=== PATIENT | female | born 1975 | race Caucasian/White ===

== ENCOUNTER 2016-10-12 11:04 | Observation (INO) | payer MEDICARE, OTHER ==
[~2016-10-12] VITALS: Ht 167.6 cm; Wt 97.5 kg
[~2016-10-12 11:04] MED LIST: DOCU-144 PO; FER325 PO; GLIM4TAB PO; LANT3I SC; LEVO137T24 PO; METF500T4 PO
[2016-10-12 11:16] VITALS: Ht 167.6 cm; Wt 97.5 kg
[2016-10-12] MEDS ORDERED: SOD CHLORIDE 0.9% 1,000 ML IV STA (11:24)
[2016-10-12 12:02] LABS: ADD SCAN DIFF NO
[2016-10-12 12:07] LABS: ABNORMAL IP MESSAGE 1; HEMATOCRIT 24.8 % (37.0-47.0); MEAN CORPUSCULAR HEMOGLOBIN 16.9 pg (29.0-33.0); MEAN CORPUSCULAR HGB CONC 26.2 g/dl (32.0-37.0); MEAN CORPUSCULAR VOLUME 64.6 fl (82.0-101.0); MEAN PLATELET VOLUME 8.9 fl (7.4-10.4); PLATELET COUNT 300 10^3/UL (140-415); RED BLOOD COUNT 3.84 10^6/ul (4.20-5.40); RED CELL DISTRIBUTION WIDTH 20.7 % (11.5-14.5)
[2016-10-12 12:20] LABS: HEMOGLOBIN 6.5 g/dl (12.0-16.0)
[2016-10-12] MEDS ORDERED: SOD CHLORIDE 0.9% 250 ML IV ONE (12:20)
[2016-10-12 12:32] LABS: ADD UMIC NO; UR ASCORBIC ACID 40 mg/dL (NEGATIVE); UR BILIRUBIN (Dip) NEGATIVE (NEGATIVE); UR BLOOD (Dip) NEGATIVE (NEGATIVE); UR CLARITY SLIGHTLY CLOUDY (CLEAR); UR COLOR YELLOW (YELLOW); UR GLUCOSE (Dip) 1+ mg/dL (NEGATIVE); UR KETONES (Dip) TRACE mg/dL (NEGATIVE); UR LEUKOCYTE ESTERASE (Dip) NEGATIVE Leu/ul (NEGATIVE); UR MUCUS FEW /HPF (NONE SEEN); UR NITRITE (Dip) NEGATIVE (NEGATIVE); UR RBC 0 /HPF (0-5); UR SPECIFIC GRAVITY (Dip) 1.023 (1.003-1.030); UR SQUAMOUS EPITHELIAL CELL MODERATE /HPF (FEW); UR TOTAL PROTEIN (Dip) NEGATIVE (NEGATIVE); UR UROBILINOGEN (Dip) NEGATIVE (NEGATIVE)
[2016-10-12 12:32] LABS: CREATININE 0.72 mg/dl (0.44-1.00); POTASSIUM 3.7 mmol/L (3.5-5.1)
[2016-10-12 12:51] LABS: EOSINOPHILS # 0.2 10^3/ul (0.0-0.5); LYMPHOCYTES # 2.3 10^3/ul (0.8-2.9); MONOCYTE # 0.2 10^3/ul (0.3-0.9); NEUTROPHIL # 2.7 10^3/ul (1.6-7.5)
[2016-10-12 12:54] LABS: PLATELET ESTIMATE PLT APPEAR ADEQUATE
--- NOTE | 2016-10-12 12:59 | RADRPT ---
PROCEDURE: US Pelvis CLINICAL INDICATION: Vaginal bleeding TECHNIQUE: Multiple sonographic images of the pelvis were obtained utilizing a transabdominal and endovaginal technique. The images were reviewed on a PACS workstation. COMPARISON: Pelvic ultrasound from 02/02/2016 LMP: 09/02/2016 FINDINGS: The uterus measures 10.6 x 6.2 x 5.9 cm. The endometrial echo complex measures 11 mm in thickness. The uterus is heterogeneous and the junctional zone between the endometrium and myometrium is indis tinct. A 1.3 cm Nabothian cyst is identified. The right ovary measures 2.4 x 1.4 x 1.8 cm. The left ovary measures 3.1 x 2.2 x 2.2 cm. There is no rmal vascular flow in both ovaries. There is a 1.7 cm complex cystic lesion with low level internal echoes and partially circumscribed b orders in the left ovary which may be a hemorrhagic/corpus luteal cyst. There is mild peripheral va scular flow. There is mild pelvic free fluid. IMPRESSION: The uterus is heterogeneous and the junctional zone between the endometrium and myometrium is indist inct. Clinical correlation for adenomyosis is recommended. 1.7 cm complex cystic lesion in the left ovary may be a hemorrhagic/corpus luteal cyst. RPTAT: EE Physician Ciaran Date Time Electronically viewed and signed by Physician Ciaran on 10/12/2016 12:59 /
[2016-10-12] MEDS ORDERED: ACETAMINOPHEN 325 MG TAB PO PRN (13:00)
[2016-10-12] MEDS ORDERED: ONDANSETRON 4 MG INJ IV PRN (13:00)
--- NOTE | 2016-10-12 14:42 | ERA ---
ER Documentation Chief Complaint Date/Time DATE: 10/12/16 TIME: 14:40 Chief Complaint PT with intermittent VB X 2 months, weak dizzyness. HPI Patient is a 41-year-old female with hypertension, diabetes, and anemia who presents with vaginal bleeding. She has had 3 weeks of vaginal bleeding. She has edema along with shortness of breath and fatigue. She has abdominal pain and vomiting. Her blood sugars have ranged from 150-400. She has needed transfusion in the past. Upon review of old medical records the patient was admitted once previously in 2016 ROS All systems reviewed and are negative except as per history of present illness. Medications Home Meds Active Scripts Docusate Sodium* (Colace*) 100 Mg Capsule, 100 MG PO BID Y for constipation, # 60 CAP Prov:PRIYA GAYLE MD 02/04/16 Levothyroxine Sodium* (Synthroid*) 137 Mcg Tablet, 137 MCG PO DAILY@06, #90 TAB Prov:PRIYA GAYLE MD 02/04/16 Ferrous Sulfate* (Ferrous Sulfate*) 325 Mg Tabec, 325 MG PO BID, #180 TAB Prov:PRIYA GAYLE MD 02/04/16 Reported Medications Glimepiride* (Glimepiride*) 4 Mg Tablet, 4 MG PO WITH BREAKFAST, TAB 02/01/16 Metformin Hcl* (Metformin Hcl*) 500 Mg Tablet, 500 MG PO WITH BREAKFAST DINNE, # 30 TAB 02/01/16 Insulin Glargine* (Lantus*) 100 Unit/Ml Soln, 0 SC BID, #1 VIAL SLIDING SCALE 02/01/16 Allergies Allergies: Coded Allergies: ibuprofen (Verified Allergy, Severe, swelling, 02/01/16) PMhx/Soc History of Surgery: No Anesthesia Reaction: No Hx Neurological Disorder: No Hx Respiratory Disorders: Yes (asthma) Hx Cardiac Disorders: Yes (htn) Hx Psychiatric Problems: Yes (bipolar) Hx Miscellaneous Medical Probl: No (was on dialysis on the 90s per pt ) Hx Alcohol Use: No Hx Substance Use: No Hx Tobacco Use: Yes (cigarrets 1/2 of the pack ) Smoking Status: Current every day smoker FmHx Family History: diabetes Physical Exam Vitals Vital Signs Date Time Temp Pulse Resp B/P Pulse Ox O2 Delivery O2 Flow Rate FiO2 10/12/16 11:16 98.3 91 18 111/68 100 Physical Exam Const: No acute distress Head: Atraumatic Eyes: Normal Conjunctiva ENT: Normal External Ears, Nose and Mouth. Neck: Full range of motion..~ No meningismus. Resp: Clear to auscultation bilaterally Cardio: Regular rate and rhythm, no murmurs Abd: Soft, non tender, non distended. Normal bowel sounds Skin: Pale skin Back: No midline or flank tenderness Ext: No cyanosis, or edema Neur: Awake and alert Psych: Normal Mood and Affect Result Diagram: 10/12/16 1150 10/12/16 1150 Results 24 hrs Laboratory Tests Test 10/12/16 11:50 10/12/16 12:00 White Blood Count 5.510^3/ul Red Blood Count 3.8410^6/ul Hemoglobin 6.5g/dl Hematocrit 24.8% Mean Corpuscular Volume 64.6fl Mean Corpuscular Hemoglobin 16.9pg Mean Corpuscular Hemoglobin Concent 26.2g/dl Red Cell Distribution Width 20.7% Platelet Count 27348^3/UL Mean Platelet Volume 8.9fl Neutrophils % 49.0% Band Neutrophils % 1.0% Lymphocytes % 42.0% Monocytes % 4.0% Eosinophils % 4.0% Neutrophils # 2.710^3/ul Lymphocytes # 2.310^3/ul Monocytes # 0.210^3/ul Eosinophils # 0.210^3/ul Platelet Estimate PLT APPEAR ADEQUATE Sodium Level 136mmol/L Potassium Level 3.7mmol/L Chloride Level 100mmol/L Carbon Dioxide Level 24mmol/L Anion Gap 16 Blood Urea Nitrogen 12mg/dl Creatinine 0.72mg/dl Glucose Level 242mg/dl Calcium Level 9.0mg/dl Urine Color YELLOW Urine Clarity SLIGHTLY CLOUDY Urine pH 5.0 Urine Specific [place] 1.023 Urine Ketones TRACEmg/dL Urine Nitrite NEGATIVEmg/dL Urine Bilirubin NEGATIVEmg/dL Urine Urobilinogen NEGATIVEmg/dL Urine Leukocyte Esterase NEGATIVELeu/ul Urine Microscopic RBC 0/HPF Urine Microscopic WBC 2/HPF Urine Squamous Epithelial Cells MODERATE/HPF Urine Mucus FEW/HPF Urine Hemoglobin NEGATIVEmg/dL Urine Glucose 1+mg/dL Urine Total Protein NEGATIVEmg/dl Current Medications Medications (Trade) Dose Ordered Sig/Edward Route PRN Reason Start Time Stop Time Status Last Admin Dose Admin Sodium Chloride 1,000 ml @ 1,000 mls/hr Q1H STAT IV 10/12/16 11:24 10/12/16 12:23 DC 10/12/16 12:33 Sodium Chloride (NS) 250 ml @ 0 mls/hr Q0M ONCE IV 10/12/16 12:20 10/12/16 12:21 DC Ondansetron HCl (Zofran Inj) 4 mg BRIDGE ORDER PRN IV NAUSEA AND/OR VOMITING 10/12/16 13:00 10/13/16 12:59 Acetaminophen (Tylenol Tab) 650 mg ER BRIDGE PRN PO MILD PAIN/FEVER 10/12/16 13:00 10/13/16 12:59 Procedures/MDM PROCEDURE: US Pelvis CLINICAL INDICATION: Vaginal bleeding TECHNIQUE: Multiple sonographic images of the pelvis were obtained utilizing a transabdominal and endovaginal technique. The images were reviewed on a PACS workstation. COMPARISON: Pelvic ultrasound from 02/02/2016 LMP: 09/02/2016 FINDINGS: The uterus measures 10.6 x 6.2 x 5.9 cm. The endometrial echo complex measures 11 mm in thickness. The uterus is heterogeneous and the junctional zone between the endometrium and myometrium is indistinct. A 1.3 cm Nabothian cyst is identified. The right ovary measures 2.4 x 1.4 x 1.8 cm. The left ovary measures 3.1 x 2.2 x 2.2 cm. There is normal vascular flow in both ovaries. There is a 1.7 cm complex cystic lesion with low level internal echoes and partially circumscribed borders in the left ovary which may be a hemorrhagic/ corpus luteal cyst. There is mild peripheral vascular flow. There is mild pelvic free fluid. IMPRESSION: The uterus is heterogeneous and the junctional zone between the endometrium and myometrium is indistinct. Clinical correlation for adenomyosis is recommended. 1.7 cm complex cystic lesion in the left ovary may be a hemorrhagic/corpus luteal cyst. RPTAT: EE Physician Ciaran Date Time Electronically viewed and signed by Hill Matt Physician on 10/12/2016 12:59 EKG read by me: Rate/Rhythm: Regular rate and rhythm at a normal rate Intervals: Normal Impression: No evidence of ischemia or arrhythmia Smoking Cessation Therapy: Pt. was lectured for greater than 3 minutes on the health risks of continued smoking and the benefits of cessation. Patient is a 41-year-old female who presents with acute anemia. Her hemoglobin is 6.5 and she will need transfusion of packed red blood cells. I have ordered 2 units of packed red blood cells. She should be admitted to Dr. Chalino Gayle but he is on vacation and Dr. Aguirre is covering for him so I spoke with Dr. Aguirre for admission to a medical surgical bed. He is planning to consult gynecology. The patient has no or ectopic . I believe she likely has dysfunctional uterine bleeding and may require hysterectomy. Critical Care: Time: 35 minutes excluding all billable procedures. Treatments/Evaluations: Close monitoring and treatment of unstable vital signs, cardiorespiratory, and neurologic status, while maintaining tight balance of fluid, respiratory, and cardiac interventions. Departure Diagnosis: Primary Impression: Dysfunctional uterine bleeding Additional Impression: Anemia Qualified Code: D64.9 - Anemia, unspecified type Condition: CELI Lerma MD Oct 12, 2016 14:42
--- NOTE | 2016-10-12 15:03 | HP ---
Date/Time of Note Date/Time of Note DATE: 10/12/16 TIME: 14:53 Assessment/Plan VTE Prophylaxis VTE Prophylaxis Intervention: SCD's Assessment/Plan Assessment/Plan -Acute on chronic anemia secondary to menorrhagia -Vaginal bleeding, gynecological consultation. -Diabetes mellitus type 2, will obtain hemoglobin A1c continue metformin and glimepiride Lantus and NovoLog -Hypothyroidism, continue levothyroxine. -Hypertension, due to monitor blood pressure, she is currently normotensive -Obesity with BMI of 34.7 Further recommendations based on clinical course. Plan of care discussed with Dr. Aguirre. HPI/ROS Admit Date/Time Admit Date/Time Hx of Present Illness The patient is 41-year-old female with history of hypertension, diabetes, and hypothyroidism. Patient presented with complaints of 3 weeks of vaginal bleeding was a generalized weakness and fatigue. Patient's complains of abdominal pain however denies any nausea vomiting patient denies fever chills denies any chest pain denies shortness of breath. Patient has previous admission in January 2016 for severe anemia and was evaluated by GI specialist was no evidence of gastrointestinal bleeding. Patient has ongoing menorrhagia however stated that she did not follow up with outpatient behavior therapist yet. On admission of the emergency room patient's hemoglobin was found to be 6.5. Patient is currently getting blood transfusion. The patient will be admitted for further evaluation and management. ROS 12 point review of system is negative unless mentioned in HPI PMH/Family/Social Past Medical History Medical History: diabetes, hypertension, hypothyroid, other (Bipolar) Past Surgical History Status post tubal ligation Family History Significant Family History: no pertinent family hx Social History Alcohol Use: occasionally Smoking Status: Current every day smoker Drug Use: none Exam/Review of Systems Vital Signs Vitals Vital Signs Date Time Temp Pulse Resp B/P Pulse Ox O2 Delivery O2 Flow Rate FiO2 10/12/16 11:16 98.3 91 18 111/68 100 Exam Constitutional: alert, oriented Head: atraumatic, normocephalic Eyes: nl conjunctiva Neck: non-tender, supple Respiratory: normal air movement Cardiovascular: nl pulses Gastrointestinal: soft, tender Musculoskeletal: nl extremities to inspection Extremities: normal pulses Neurological: nl mental status Skin: nl turgor Labs Result Diagram: 10/12/16 1150 10/12/16 1150 KORIN JIMENEZ Oct 12, 2016 15:03
[2016-10-12] MEDS ORDERED: LEVO150T64 PO (15:11)
[2016-10-12] MEDS ORDERED: METF1000 PO (15:12)
[2016-10-12] MEDS ORDERED: LANT3I SC (15:12)
[2016-10-12] MEDS ORDERED: FENO67CA PO (15:14)
[2016-10-12] MEDS ORDERED: ATOR20TA38 PO (15:14)
[2016-10-12] MEDS ORDERED: GLUCOSE GEL 15 GRAM TUBE PO PRN ×2 (15:30)
[2016-10-12] MEDS ORDERED: GLUCAGON 1 MG INJ IM PRN (15:30)
[2016-10-12] MEDS ORDERED: DOCUSATE SODIUM 100 MG CAP PO PRN (15:30)
[2016-10-12] MEDS ORDERED: GLUCOSE GEL 15 GRAM TUBE BUCCAL PRN (15:30)
[2016-10-12] MEDS ORDERED: DEXTROSE 50% 50 ML SYRINGE IV PRN ×2 (15:30)
--- NOTE | 2016-10-12 17:29 | QN ---
Documentation Comment 41 y.o with chronic menorrhge co fo pain pt with multiple medical issues. 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
[2016-10-12] MEDS ORDERED: metFORMIN 500 MG TAB PO SCH (18:00)
[2016-10-12] MEDS ORDERED: INSULIN ASPART [NOVOLOG] 3 ML PEN SC SCH ×2 (18:00)
[2016-10-12] MEDS ORDERED: ORTNOV PO (18:24)
[2016-10-12 18:41] VITALS: BP 131/71; PULSE 77; RESP 18; TEMP 98
[2016-10-12] MEDS ORDERED: INSULIN GLARGINE [LANtus] 3 ML PEN SC SCH (20:00)
[2016-10-13] MEDS ORDERED: LEVOTHYROXINE 137 MCG TAB PO SCH (06:00)
[2016-10-13] MEDS ORDERED: GLIMEPIRIDE 4 MG TAB PO SCH (08:00)
[2016-10-13 13:12] LABS: WHITE BLOOD COUNT 5.5 10^3/ul (4.8-10.8)
== END 2016-10-12 18:30 | disposition left against medical advice (07) ==
LOC: E/R 11:04 → MS1 13:22 → E/R 18:46 → MS1 18:46
PROVIDERS: ADMIT Internal Medicine; ATTEND Internal Medicine
DX: N93.8 Other specified abnormal uterine and vaginal bleeding (principal); D64.9 Anemia, unspecified; E11.9 Type 2 diabetes mellitus without complications; I10 Essential (primary) hypertension; E03.9 Hypothyroidism, unspecified; F17.210 Nicotine dependence, cigarettes, uncomplicated; J45.909 Unspecified asthma, uncomplicated; F31.9 Bipolar disorder, unspecified; Z79.4 Long term (current) use of insulin; Z98.51 Tubal ligation status; Z88.6 Allergy status to analgesic agent
CPT/HCPCS: 36415; 36430; 76830; 76856; 80048; 81001; 83036; 84443; 85025; 86850; 86900; 86901; 86920; 93005; 99291; G0378; J7030; J7040; P9016; 81003; J1815

== ENCOUNTER 2017-03-31 23:03 | Inpatient (IN) | END 2017-04-04 16:45 | disposition home or self-care (01) | DRG 812 ==